=== PATIENT | male | born 1975 | race Caucasian/White ===

== ENCOUNTER 2023-08-04 06:33 | Day surgery (SDC) | payer OTHER ==
[~2023-08-04 06:33] MED LIST: Dextrose 5%-0.45% NaCl 1,000 ML IV SCH; Sodium Chloride 0.9% 10 ML Syringe FLUSH PRN
[2023-08-04] MEDS ORDERED: Propofol 200 MG/20 ML SDV IV ONE (06:34)
[2023-08-04] MEDS ORDERED: Lidocaine 1% 30 ML SDV INJECT ONE (06:34)
== END 2023-08-04 08:49 | disposition home or self-care (01) ==
LOC: DL.ENDO 06:33
PROVIDERS: ATTEND Internal Medicine Gastroenterology
DX: Z12.11 Encounter for screening for malignant neoplasm of colon (principal); K57.30 Diverticulosis of large intestine without perforation or abscess without bleeding; E11.9 Type 2 diabetes mellitus without complications; E78.5 Hyperlipidemia, unspecified; D56.3 Thalassemia minor; F17.210 Nicotine dependence, cigarettes, uncomplicated; Z80.0 Family history of malignant neoplasm of digestive organs; Z87.828 Personal history of other (healed) physical injury and trauma
CPT/HCPCS: 45378; J7042; 00812; J2704; J3490